=== PATIENT | male | born 1940 | race Caucasian/White ===

== ENCOUNTER 2018-06-10 06:31 | Emergency (ER) | payer OTHER | END 2018-06-10 09:53 | disposition home or self-care (01) | LOC: FTE 06:31 | DX: S82.832A Other fracture of upper and lower end of left fibula, initial encounter for closed fracture (principal); V29.9XXA Motorcycle rider (driver) (passenger) injured in unspecified traffic accident, initial encounter | CPT/HCPCS: 29515; 73610; 73630-LT; 93971; 99284-25 ==

== ENCOUNTER 2018-10-05 06:57 | Emergency (ER) | payer OTHER | END 2018-10-05 12:27 | disposition home or self-care (01) | LOC: FTE 06:57 | DX: S62.317A Displaced fracture of base of fifth metacarpal bone, left hand, initial encounter for closed fracture (principal); W01.0XXA Fall on same level from slipping, tripping and stumbling without subsequent striking against object, initial encounter; Y92.9 Unspecified place or not applicable | CPT/HCPCS: 29125; 73130-LT; 99283-25 ==